=== PATIENT | male | born 1980 | race Two or more races ===

== ENCOUNTER 2016-10-16 10:20 | Emergency (ER) | payer OTHER ==
[2016-10-16 10:40] VITALS: BP 115/72
--- NOTE | 2016-10-16 11:08 | EDM.PDOC ---
ED HISTORY OF PRESENT ILLNESS - General Chief Complaint: Fever Stated Complaint: FEVER Time Seen by Provider: 10/16/16 10:39 Source of Information: Reports: Patient History Limitations: Reports: No limitations - History of Present Illness INITIAL COMMENTS - FREE TEXT/NARRATIVE: Presents reporting a four-day history of fever, body aches, cough, vomiting 2 times. His child tested positive for influenza last week. Otherwise healthy without chronic medical problems. He does not smoke and he did not have a flu vaccine this year - Related Data Allergies/ADRs: Allergies Allergy/AdvReac Type Severity Reaction Status Date / Time No Known Allergies Allergy Verified 10/16/16 10:36 Home Meds: Home Meds . [No Known Home Meds] 10/16/16 [History] Past Medical History - Past Health History Medical/Surgical History: Denies Medical/Surgical History Social & Family History - Tobacco Use Smoking Status *Q: Never Smoker Second Hand Smoke Exposure: No - Caffeine Use Caffeine Use: Reports: None - Recreational Drug Use Recreational Drug Use: No ED ROS GENERAL - Review of Systems Review Of Systems: ROS reveals no pertinent complaints other than HPI. ED EXAM, GENERAL - Physical Exam Exam: See Below Exam Limited By: No limitations General Appearance: alert, no apparent distress Ears: normal external exam Nose: normal inspection Throat/Mouth: Normal inspection Head: atraumatic, normocephalic Neck: normal inspection Respiratory/Chest: no respiratory distress Cardiovascular: normal peripheral pulses GI/Abdominal: soft Back Exam: normal inspection Extremities: normal inspection Neurological: alert, oriented, normal cognition Psychiatric: normal affect, normal mood Skin Exam: Warm, Dry, Intact, Normal color, No rash Lymphatic: no adenopathy Course - Vital Signs Last Recorded V/S: Last Vital Signs Temp 37.7 C 10/16/16 10:37 Pulse 106 H 10/16/16 10:37 Resp 18 10/16/16 10:37 BP 115/72 10/16/16 10:37 Pulse Ox 94 L 10/16/16 10:37 - Orders/Labs/Meds Orders: Active Orders 24 hr Category Date Time Status INFLUENZA A+B AG SCREEN [RM] Stat Lab 10/16/16 10:54 Ordered Departure - Departure Time of Disposition: 11:22 Disposition: Home, Self-Care 01 Clinical Impression: Influenza B Referrals: PCP,None [Primary Care Provider] - [facility] [Outside] [facility] [Outside] Forms: ED Department Discharge Additional Instructions: 1. drink plenty of fluids and rest 2. Tylenol or ibuprofen as needed for body aches and fever 3. good respiratory toilet and handwashing when out in public, wear a mask - My Orders Last 24 Hours: My Active Orders 10/16/16 10:54 INFLUENZA A+B AG SCREEN [RM] Stat - Assessment/Plan Last 24 Hours: My Active Orders 10/16/16 10:54 INFLUENZA A+B AG SCREEN [RM] Stat
== END 2016-10-16 11:37 | disposition home or self-care (01) ==
LOC: MW.ED 10:20
DX: J10.1 Influenza due to other identified influenza virus with other respiratory manifestations (principal)
CPT/HCPCS: 87804; 99282; 99283

== ENCOUNTER 2016-10-18 14:15 | Emergency (ER) | payer OTHER ==
--- NOTE | 2016-10-18 14:29 | EDM.PDOC ---
ED HPI GI/ABDOMINAL - General Chief Complaint: Abdominal Pain Stated Complaint: FEVER GETTING WORSE Time Seen by Provider: 10/18/16 14:25 Source of Information: Reports: Patient History Limitations: Reports: No limitations - History of Present Illness INITIAL COMMENTS - FREE TEXT/NARRATIVE: HISTORY AND PHYSICAL: History of present illness: [Comes to the ER to followup on recent illness. Has been sick according to his for the past month. Symptoms worsened on October 13 and patient came to the ER and was diagnosed with influenza on October 16, 2016. Did not receive a flu shot this year and was not prescribed Tamiflu. Over the past 24 hours he has felt worse. Complains of generalized aches and pains, nausea, vomiting. He' s not had any energy and has been very fatigued. He's had no difficulty urinating. admits that he is not drinking much in the way of fluids. Appetite has been decreased. Patient has a history of kidney stones though none recently, according to . Urine has been very dark the patient denies seeing any blood in his urine. Has had fever and chills. 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 Past medical history: As per history of present illness and as reviewed below otherwise noncontributory. Surgical history: As per history of present illness and as reviewed below otherwise noncontributory. Social history: No reported history of drug or alcohol abuse. Family history: As per history of present illness and as reviewed below otherwise noncontributory. Physical exam: HEENT: Atraumatic, normocephalic., mucous membranes pink and sticky. throat clear, neck supple, nontender. Lungs: Clear to auscultation, breath sounds equal bilaterally. Heart: S1S2, regular rate rhythm. Abdomen: Soft, nondistended, nontender. No CVA tenderness. Negative for masses or hepatosplenomegaly. Pelvis: Stable nontender. Genitourinary: Deferred. Rectal: Deferred. Extremities: Atraumatic, negative for cords or calf pain. No cyanosis or edema to feet or lower legs. Neurovascular unremarkable. Neuro: Awake, alert, oriented. Motor and sensory unremarkable throughout. Exam nonfocal. Diagnostics: [CBC, CMP, urinalysis, CT abdomen and pelvis without contrast] Therapeutics: [2 L normal saline, Zofran 4 mg IV, Toradol 30 mg IV] Impression: [Kidney stone Influenza] Plan: [Discussed with patient and his . He has a 2 x 3 mm stone in his distal right ureter. Anticipate that this will pass without any difficulty. Rx is written for Toradol 10 mg #30 sig: One by mouth every 6 hours as needed, zero refills; Flomax 0.4 mg #10 sig: One by mouth daily zero refills; Zofran 4 mg # 20 sig: One by mouth Q6 to 8 hours as needed for nausea zero refills; Omaha 5/ 325 mg #30 sig one by mouth every 6-8 hours as needed for pain zero refills. He is given referral for urology followup next week. Push fluids, no work until October 22, 2016. Patient and his are in agreement with today's plan. All questions are answered and concerns are addressed.] Definitive disposition and diagnosis as appropriate pending reevaluation and review of above. - Related Data Allergies/ADRs: Allergies Allergy/AdvReac Type Severity Reaction Status Date / Time No Known Allergies Allergy Verified 10/18/16 14:19 Home Meds: Home Meds . [No Known Home Meds] 10/16/16 [History] Past Medical History - Past Health History Medical/Surgical History: Denies Medical/Surgical History HEENT History: Reports: None Cardiovascular History: Reports: None Respiratory History: Reports: None Gastrointestinal History: Reports: None Genitourinary History: Reports: None Musculoskeletal History: Reports: None Neurological History: Reports: None Psychiatric History: Reports: None Endocrine/Metabolic History: Reports: None Hematologic History: Reports: None Immunologic History: Reports: None Oncologic (Cancer) History: Reports: None Dermatologic History: Reports: None - Infectious Disease History Infectious Disease History: Reports: Chicken pox, Influenza - Past Surgical History Head Surgeries/Procedures: Reports: None Social & Family History - Family History Family Medical History: Noncontributory - Tobacco Use Smoking Status *Q: Never Smoker Second Hand Smoke Exposure: No - Caffeine Use Caffeine Use: Reports: Coffee, Energy drinks Caffeine Use Comment: "not daily" per - Recreational Drug Use Recreational Drug Use: No ED ROS GENERAL - Review of Systems Review Of Systems: ROS reveals no pertinent complaints other than HPI. ED EXAM, GI/ABD - Physical Exam Exam: See Below Course - Vital Signs Last Recorded V/S: Last Vital Signs Temp 96.8 F 10/18/16 14:20 Pulse 88 10/18/16 14:20 Resp 18 10/18/16 14:20 BP 148/88 H 10/18/16 14:20 Pulse Ox 96 10/18/16 14:20 - Orders/Labs/Meds Orders: Active Orders 24 hr Category Date Time Status Abdomen Pelvis wo Cont [CT] Stat Exams 10/18/16 17:52 Taken Labs: Laboratory Tests 10/18/16 10/18/16 10/18/16 Range/Units 15:01 15:01 17:02 WBC 12.74 H (4.0-11.0) K/uL RBC 5.71 (4.50-5.90) M/uL Hgb 16.2 (13.0-17.0) g/dL Hct 48.4 (38.0-50.0) % MCV 84.8 (80.0-98.0) fL MCH 28.4 (27.0-32.0) pg MCHC 33.5 (31.0-37.0) g/dL RDW Std Deviation 38.5 (28.0-62.0) fl RDW Coeff of Justin 12 (11.0-15.0) % Plt Count 206 (150-400) K/uL MPV 9.30 (7.40-12.00) fL Neut % (Auto) 79.9 (48.0-80.0) % Lymph % (Auto) 12.4 L (16.0-40.0) % [facility] % (Auto) 7.4 (0.0-15.0) % Eos % (Auto) 0.2 (0.0-7.0) % Baso % (Auto) 0.1 (0.0-1.5) % Neut # 10.2 H (1.4-5.7) K/uL Lymph # 1.6 (0.6-2.4) K/uL [facility] # 0.9 H (0.0-0.8) K/uL Eos # 0.0 (0.0-0.7) K/uL Baso # 0.0 (0.0-0.1) K/uL Nucleated RBC % 0.0 /100WBC Nucleated RBCs # 0 K/uL Sodium 140 (136-146) mmol/L Potassium 3.9 (3.5-5.1) mmol/L Chloride 103 (98-110) mmol/L Carbon Dioxide 27 (21-31) mmol/L BUN 12 (6.0-23.0) mg/dL Creatinine 1.2 (0.6-1.5) mg/dL Est Cr Clr Drug Dosing 79.01 mL/min Estimated GFR (MDRD) > 60.0 ml/min Glucose 93 (60-110) mg/dL Calcium 9.0 (8.8-10.8) mg/dL Total Bilirubin 0.6 (0.1-1.5) mg/dL AST 21 (5-40) IU/L ALT 31 (8-54) IU/L Alkaline Phosphatase 88 (40-150) Total Protein 7.9 (6.0-8.0) g/dL Albumin 4.1 (3.5-5.0) g/dL Globulin 3.8 H (2.0-3.5) g/dL Albumin/Globulin Ratio 1.1 L (1.3-2.8) Urine Color DARK YELLOW Urine Appearance SLT CLOUDY Urine pH 5.5 (5.0-8.0) Ur Specific [place] >= 1.030 (1.001-1.035) Urine Protein 30 (NEGATIVE) mg/dL Urine Glucose (UA) NEGATIVE (NEGATIVE) mg/dL Urine Ketones NEGATIVE (NEGATIVE) mg/dL Urine Occult Blood LARGE H (NEGATIVE) Urine Nitrite NEGATIVE (NEGATIVE) Urine Bilirubin NEGATIVE (NEGATIVE) Urine Urobilinogen 0.2 (<2.0) EU/dL Ur Leukocyte Esterase NEGATIVE (NEGATIVE) Urine RBC 35-40 (0-2/HPF) Urine WBC 0-3 (0-5/HPF) Ur Epithelial Cells FEW (NONE-FEW) Urine Bacteria FEW (NEGATIVE) Meds: Medications Discontinued Medications Generic Name Dose Route Start Last Admin Trade Name Freq PRN Reason Stop Dose Admin Sodium Chloride 1,000 mls @ 999 mls/hr 10/18/16 14:40 10/18/16 15:04 Normal Saline IV 10/18/16 15:40 999 mls/hr STAT ONE Administration Sodium Chloride 1,000 mls @ 999 mls/hr 10/18/16 17:36 10/18/16 17:48 Normal Saline IV 10/18/16 18:36 999 mls/hr STAT ONE Administration Ketorolac Tromethamine 30 mg 10/18/16 14:40 10/18/16 15:04 Toradol IVPUSH 10/18/16 14:41 30 mg ONETIME ONE Administration Ondansetron HCl 4 mg 10/18/16 14:40 10/18/16 15:04 Zofran IVPUSH 10/18/16 14:41 4 mg ONETIME ONE Administration Departure - Departure Time of Disposition: 19:20 Disposition: Home, Self-Care 01 Condition: good Clinical Impression: Kidney stone Instructions: Kidney Stones, [id number] Referrals: PCP,None [Primary Care Provider] - Forms: ED Department Discharge Additional Instructions: The following information is given to patients seen in the emergency department who are being discharged to home. This information is to outline your options for follow-up care. We provide all patients seen in our emergency department with a follow-up referral. The need for follow-up, as well as the timing and circumstances, are variable depending upon the specifics of your emergency department visit. If you don't have a primary care physician on staff, we will provide you with a referral. We always advise you to contact your personal physician following an emergency department visit to inform them of the circumstance of the visit and for follow-up with them and/or the need for any referrals to a consulting specialist. The emergency department will also refer you to a specialist when appropriate. This referral assures that you have the opportunity for follow-up care with a specialist. All of these measure are taken in an effort to provide you with optimal care, which includes your follow-up. Under all circumstances we always encourage you to contact your private physician who remains a resource for coordinating your care. When calling for follow-up care, please make the office aware that this follow-up is from your recent emergency room visit. If for any reason you are refused follow-up, please contact the [facility] emergency department at and asked to speak to the emergency department charge nurse. [facility] Specialty Care - Urology [address] [place] [id number] Followup with urologist next week. Call tomorrow to schedule appointment. Take Toradol every 6 hours for pain. Take Flomax once daily to help open and smooth out ureters for stones to pass. Take [place] every 6 hours as needed for moderate to severe pain that is unrelieved with ibuprofen or Tylenol. Take Zofran as he needed for nausea. Push lots of fluids. Return to ER as needed and as discussed. - My Orders Last 24 Hours: My Active Orders 10/18/16 17:52 Abdomen Pelvis wo Cont [CT] Stat - Assessment/Plan Last 24 Hours: My Active Orders 10/18/16 17:52 Abdomen Pelvis wo Cont [CT] Stat
[2016-10-18] MEDS ORDERED: Ondansetron 4 MG/2 ML SDV IVPUSH ONE (14:40)
[2016-10-18] MEDS ORDERED: Sodium Chloride 0.9% 1,000 ML IV ONE ×2 (14:40→17:36)
[2016-10-18] MEDS ORDERED: Ketorolac 30 MG/ML SDV IVPUSH ONE (14:40)
[2016-10-18 15:34] LABS: CHLORIDE,CL 103 mmol/L (98-110); SODIUM,NA 140 mmol/L (136-146)
[2016-10-18 21:16] VITALS: BP 130/70
--- NOTE | 2016-10-19 14:03 | CT ---
EXAM DATE: 10/18/16 PATIENT'S AGE: 35 Patient: EMANUEL BIRMINGHAM Facility: [place], [place] Site . Site : 1980 Study: CT Abdomen/Pelvis [id number] 6:24:01 PM Ordering Physician: Doctor Quiñonez Final Report: INDICATION: Right flank pain. CT ABDOMEN AND PELVIS WITHOUT CONTRAST TECHNIQUE: Multidetector CT imaging was performed through the abdomen and pelvis without intravenous contrast administration. Coronal and sagittal reconstructions were generated. COMPARISON: None. FINDINGS: Lower chest: Lung bases are clear. Liver: Within normal limits. Gallbladder and bile ducts: No gallbladder wall thickening or calcified gallstones. No biliary dilation identified. Pancreas: Unremarkable. Spleen: Normal. Adrenals: No nodules or masses. Kidneys, ureters, and urinary bladder: Obstructing 2 x 3 millimeter stone in the distal right ureter at the ureterovesical junction producing mild dilation of the right ureter and mild right hydronephrosis. Several small bilateral nonobstructing intrarenal stones are also noted. No bladder mass or definite wall thickening. Gastrointestinal tract: Normal caliber bowel without wall thickening. The appendix is normal. Vascular structures: Normal for age. Peritoneum: No free air, abscess, or significant free fluid. Lymph nodes: No pathologically enlarged nodes identified. Reproductive organs: No pelvic masses. Bones: Normal for age. IMPRESSION: 1. Obstructing 2 x 3 millimeter stone in the distal right ureter at the UVJ producing mild right hydroureteronephrosis. 2. Several small bilateral nonobstructing intrarenal stones. ALPHONSO SHULTZ MD [employer] Dictated by Fernando Shultz MD @ 10/18/2016 6:52:48 PM Dictated by: Fernando Shultz MD @ 10/18/2016 18:54:02 (Electronic Signature) Report Signed by Proxy and Original Signed Document filed in the Medical Record. [facility]
== END 2016-10-18 19:41 | disposition home or self-care (01) ==
LOC: MW.ED 14:15
DX: N20.0 Calculus of kidney (principal)
CPT/HCPCS: 36415; 74176; 80053; 81001; 85025; 96361; 96374; 96375; 99284; J1885; J2405; J7040